=== PATIENT | female | born 1990 | race Caucasian/White ===

== ENCOUNTER 2017-10-02 08:04 | Inpatient (IN) | payer OTHER ==
[~2017-10-02] VITALS: Ht 160 cm; Wt 61.2 kg
[2017-10-02] MEDS ORDERED: RINGERS SOLUTION,LACTATED 1,000 ML IV PRN (08:31)
[2017-10-02] MEDS ORDERED: FentaNYL CITRATE-PF 100 MCG/2 ML VIAL IVP PRN (08:45)
[2017-10-02] MEDS ORDERED: METOCLOPRAMIDE HCL 5 MG/ML 2 ML VIAL IVP PRN (08:45)
[2017-10-02] MEDS ORDERED: CITRIC ACID/SODIUM CITRATE 30 ML SOLUTION UDCUP PO PRN (08:45)
[2017-10-02 09:20] VITALS: BP 130/88
[2017-10-02 09:31] LABS: EOSINOPHILS % (AUTO) 0.7 % (1.0-6.0); HEMOGLOBIN 10.2 g/dL (12.0-16.0); LYMPHOCYTES # (AUTO) 1.8 K/uL (1.0-4.8); LYMPHOCYTES % (AUTO) 18.6 % (22.0-44.0); MEAN CORPUSCULAR HEMOGLOBIN 24.1 pg (26.0-34.0); MEAN CORPUSCULAR HGB CONC 31.9 G/dL (31.0-37.0); MEAN CORPUSCULAR VOLUME 76 fL (80-100); MONOCYTES # (AUTO) 0.6 K/uL (0.1-1.0); MONOCYTES % (AUTO) 5.9 % (2.0-9.0); NEUTROPHILS % (AUTO) 73.8 % (40.0-70.0); PLATELET COUNT (AUTO) 215 K/uL (150-450); RED BLOOD CELL COUNT(AUTO) 4.24 MIL/uL (4.00-5.20); RED CELL DISTRIBUTION WIDTH 20.5 % (11.5-14.5)
[2017-10-02] MEDS: RINGERS SOLUTION,LACTATED 1,000 ML IV SCH ×2 (10:11→21:05)
[2017-10-02] MEDS ORDERED: LIDOCAINE HCL 2%/EPI 1:200,000/PF 20 ML VIAL ONE (10:12)
[2017-10-02] MEDS ORDERED: ROPIVACAINE HCL 0.2% 100 ML ED ONE (10:12)
[2017-10-02] MEDS ORDERED: BENZOCAINE 20%/MENTHOL 56 GM SPRAY CANISTER TP PRN (11:00)
[2017-10-02] MEDS ORDERED: ACETAMINOPHEN/CODEINE 300-30 MG TABLET PO PRN (11:00)
[2017-10-02] MEDS ORDERED: LANOLIN 7 GM OINTMENT TP PRN (11:00)
[2017-10-02] MEDS ORDERED: GLYCERIN/WITCH HAZEL LEAF 40 PADS JAR TP PRN (11:00)
[2017-10-02] MEDS: ACETAMINOPHEN/CODEINE 300-30 MG TABLET PO PRN ×2 (11:18→12:00)
[2017-10-02] MEDS: IBUPROFEN 800 MG TABLET PO SCH ×2 (12:00→18:51)
[2017-10-02] MEDS ORDERED: OXYTOCIN 20 UNITS/LACT RINGERS 1,000 ML IV ONE ×2 (12:30→12:40)
[2017-10-02] MEDS ORDERED: OXYGEN THERAPY IH SCH (20:00)
[2017-10-02] MEDS: MAGNESIUM HYDROXIDE SUSPENSION 30 ML UDCUP PO SCH (21:04)
[2017-10-03] MEDS: IBUPROFEN 800 MG TABLET PO SCH ×4 (01:13→18:40)
[2017-10-03] MEDS: MAGNESIUM HYDROXIDE SUSPENSION 30 ML UDCUP PO SCH ×2 (07:49→21:00)
[2017-10-03] MEDS ORDERED: IBUP-2070 PO (20:52)
[2017-10-03] MEDS ORDERED: DSS100 PO (20:53)
[2017-10-03] MEDS ORDERED: FERR-89 PO (20:54)
[2017-10-04] MEDS: IBUPROFEN 800 MG TABLET PO SCH ×2 (00:42→06:47)
== END 2017-10-04 10:50 | disposition home or self-care (01) | DRG 560 ==
LOC: OBSVTOIN 08:04 → 4S 08:04
PROVIDERS: ADMIT Obstetrics & Gynecology; ATTEND Obstetrics & Gynecology
PROC: 10E0XZZ Delivery of Products of Conception, External Approach (ICD-10-PCS; principal; 2017-10-02)
PROC: 4A1HXCZ Monitoring of Products of Conception, Cardiac Rate, External Approach (ICD-10-PCS; 2017-10-02)
DX: O77.0 Labor and delivery complicated by meconium in amniotic fluid (principal); Z37.0 Single live birth; Z3A.40 40 weeks gestation of pregnancy; Z79.899 Other long term (current) drug therapy
CPT/HCPCS: J2795; J7120